=== PATIENT | male | born 1995 | race Caucasian/White ===

== ENCOUNTER 2017-11-20 17:52 | Emergency (ER) | payer BC ==
[~2017-11-20] VITALS: Ht 175.3 cm; Wt 125.6 kg
[~2017-11-20 17:52] MED LIST: CLIN300C2 PO
[2017-11-20 18:04] VITALS: TEMP 37.5; Ht 175.3 cm; Wt 125.6 kg
[2017-11-20] MEDS ORDERED: METHYLPREDNISOLONE 125 MG VIAL IV STA (18:27)
[2017-11-20] MEDS ORDERED: SODIUM CHLORIDE 0.9% 1000ML 2,000 ML IV STA (18:27)
[2017-11-20] MEDS ORDERED: CEPH500C PO (19:09)
[2017-11-20 19:21] LABS: BASO % 0.2 %; BASO ABS # 0.01 K/uL (0-0.2); EOS % 1.8 %; EOS ABS # 0.09 K/uL (0-0.5); HEMATOCRIT 41.7 % (42-52); HEMOGLOBIN 14.3 g/dL (14.0-18.0); LYMPH % 15.6 %; LYMPH ABS # 0.79 K/uL (1.2-3.4); MEAN CELL VOLUME 88.3 fL (80-100); MEAN CORPUSCULAR HEMOGLOBIN 30.3 pg (25-34); MEAN CORPUSCULAR HGB CONC 34.3 g/dl (32-36); MEAN PLATELET VOLUME 11.4 fL (7.4-10.4); MONO % 5.5 %; MONO ABS # 0.28 K/uL (0.11-0.59); NEUT % 76.9 %; NEUT ABS # 3.89 K/uL (1.4-6.5); PLATELET COUNT 173 K/uL (130-400); RED CELL DISTRIBUTION WIDTH CV 12.4 % (11.5-14.5); RED CELL DISTRIBUTION WIDTH SD 40.1 fL (36.4-46.3); WHITE BLOOD COUNT 5.06 K/uL (4.8-10.8)
[2017-11-20 19:38] LABS: CALCIUM 8.9 mg/dl (8.5-10.1); CREATININE 1.3 mg/dl (0.60-1.40); POTASSIUM 3.7 mmol/L (3.5-5.1)
[2017-11-20] MEDS ORDERED: PRED50TA PO (20:09)
[2017-11-20 20:16] VITALS: BP 148/65; PULSE 96; O2SAT 97
--- NOTE | 2017-11-21 00:09 | EMERGENCY ROOM VISIT NOTE ---
History Report prepared by Lizzeth: Lalit Gould Under the Supervision of: Dr. Abraham Boyle D.O. First contact with patient: 18:15 Chief Complaint: ALLERGIC REACTION Stated Complaint: ALLERGIC REACTION History of Present Illness The patient is a 22 year old male who presents to the Emergency Room with complaints of a constant rash that began today. The patient states that he came to the ED last week to have an abscess drained on his left posterior knee. He reports he was started on Clindamycin because they originally thought it was due to MRSA. He reports they switched his antibiotic to Bactrim four days ago. The patient states that yesterday, he noticed some bumps on his hands bilaterally. He states when he woke up at 0500 today he noticed his hands were burning. The patient states he then checked his left leg and noticed there was rash there as well. The patient states he feels that his eyelids are starting to develop a rash because they are swelling. He also notes the rash is on his shoulders. The patient denies fever, cough, rhinorrhea, chest pain, shortness of breath, abdominal pain, nausea, vomiting, recent sick contact, rash in mouth , pruritic eyes, poison curtis contact. Source of History: patient Onset: today Position: leg Quality: burning Timing: constant Associated Symptoms: No fevers, No cough, No chest pain, No nausea, No vomiting, No abdominal pain Review of Systems See HPI for pertinent positives & negatives. A total of 10 systems reviewed and were otherwise negative. Past Medical & Surgical Medical Problems: (1) Asthma, Unspecified (2) Bacterial Infection Due To Staphylococcus Aureus Surgical Problems: (1) No history of previous surgery Family History FH: cancer FH: diabetes mellitus FH: heart disease Social History Smoking Status: Never Smoker Alcohol Use: none Marital Status: single Housing Status: lives with family Occupation Status: employed Current/Historical Medications Scheduled Prednisone (Prednisone), 50 MG PO DAILY Allergies Coded Allergies: Sulfamethoxazole w/Trimethoprim (Verified Allergy, Severe, Rash, 11/20/17) Doxycycline (Verified Allergy, Unknown, Rash and hives., 11/20/17) Reported by PT and mother. Uncoded Allergies: POISONIVYEXTRAC (Allergy, Mild, 06/02/09) Physical Exam Vital Signs Date Time Temp Pulse Resp B/P (MAP) Pulse Ox O2 Delivery O2 Flow Rate FiO2 11/20/17 20:16 96 16 148/65 97 11/20/17 18:13 109 11/20/17 18:04 37.5 120 20 158/81 96 Room Air Physical Exam GENERAL: Sitting up in bed, alert, well appearing, well nourished, no distress, non-toxic EYE EXAM: normal conjunctiva. OROPHARYNX: no exudate, no erythema, lips, buccal mucosa, and tongue normal and mucous membranes are moist NECK: supple, no nuchal rigidity, no adenopathy, non-tender LUNGS: Clear to auscultation. Normal chest wall mechanics HEART: Tachycardic, no murmurs. ABDOMEN: abdomen soft, non-tender, normo-active bowel sounds, no masses, no rebound or guarding. BACK: Back is symmetrical on inspection and there is no deformity, no midline tenderness, no CVA tenderness. SKIN: Diffuse erythematous macular papular rash with blanches on the legs, left worse than right, arms, chest, back, and face. No petechiae. No involvement of the soles. 1.5 x 1.5 cm of draining abscess to medial posterior left knee with surrounding erythema. Improving per patient. No mucosal involvement. UPPER EXTREMITIES: upper extremities are grossly normal. LOWER EXTREMITIES: No pitting edema. NEURO EXAM: Normal sensorium, cranial nerves II-XII grossly intact, normal speech, no gross weakness of arms, no gross weakness of legs. Medical Decision & Procedures Laboratory Results 11/20/17 18:39 Red Blood Count 4.72, Mean Corpuscular Volume 88.3, Mean Corpuscular Hemoglobin 30.3, Mean Corpuscular Hemoglobin Concent 34.3, Mean Platelet Volume 11.4, Neutrophils (%) (Auto) 76.9, Lymphocytes (%) (Auto) 15.6, Monocytes (%) (Auto) 5.5, Eosinophils (%) (Auto) 1.8, Basophils (%) (Auto) 0.2, Neutrophils # (Auto) 3.89, Lymphocytes # (Auto) 0.79, Monocytes # (Auto) 0.28, Eosinophils # (Auto) 0.09, Basophils # (Auto) 0.01 11/20/17 18:39 Test 11/20/17 18:39 White Blood Count 5.06 K/uL (4.8-10.8) Red Blood Count 4.72 M/uL (4.7-6.1) Hemoglobin 14.3 g/dL (14.0-18.0) Hematocrit 41.7 % (42-52) Mean Corpuscular Volume 88.3 fL (80-100) Mean Corpuscular Hemoglobin 30.3 pg (25-34) Mean Corpuscular Hemoglobin Concent 34.3 g/dl (32-36) Platelet Count 173 K/uL (130-400) Mean Platelet Volume 11.4 fL (7.4-10.4) Neutrophils (%) (Auto) 76.9 % Lymphocytes (%) (Auto) 15.6 % Monocytes (%) (Auto) 5.5 % Eosinophils (%) (Auto) 1.8 % Basophils (%) (Auto) 0.2 % Neutrophils # (Auto) 3.89 K/uL (1.4-6.5) Lymphocytes # (Auto) 0.79 K/uL (1.2-3.4) Monocytes # (Auto) 0.28 K/uL (0.11-0.59) Eosinophils # (Auto) 0.09 K/uL (0-0.5) Basophils # (Auto) 0.01 K/uL (0-0.2) RDW Standard Deviation 40.1 fL (36.4-46.3) RDW Coefficient of Variation 12.4 % (11.5-14.5) Immature Granulocyte % (Auto) 0.0 % Immature Granulocyte # (Auto) 0.00 K/uL (0.00-0.02) Anion Gap 7.0 mmol/L (3-11) Est Creatinine Clear Calc Drug Dose 116.8 ml/min Estimated GFR () 89.8 Estimated GFR (Non- 77.5 BUN/Creatinine Ratio 8.6 (10-20) Calcium Level 8.9 mg/dl (8.5-10.1) Laboratory results per my review. Medications Administered Medications (Trade) Dose Ordered Sig/Domenico Route Start Time Stop Time Status Last Admin Dose Admin Sodium Chloride 2,000 ml @ 999 mls/hr Q2H1M STAT IV 11/20/17 18:27 11/20/17 20:27 DC 11/20/17 19:00 999 MLS/HR Methylprednisolone Sodium Succinate (Solu-Medrol IV) 125 mg NOW STAT IV 11/20/17 18:27 7/26/18 18:28 DC 11/20/17 18:59 125 MG ED Course ED COURSE: Vital signs were reviewed and showed tachycardia and hypertension. The patients medical record was reviewed The above diagnostic studies were performed and reviewed. ED treatments and interventions as stated above. 1819: The patient was evaluated in room A11A. A complete history and physical examination was performed. 1826: Ordered Solu-Medrol 125 mg IV, Sodium Chloride 2000 ml @ 999 mls/hr IV. 2003: Upon reevaluation, the patient is resting comfortably. I discussed my findings with the patient and he understands and agrees with the treatment plan. Based on the patients age, coexisting illnesses, exam and lab findings the decision to treat as an outpatient was made. The patient remained stable while under my care. The patient appeared well at the time of discharge. Medical Decision Differential diagnosis includes etiologies such as cellulitis, abscess, MRSA infection, DVT, necrotizing fasciitis, dermatitis, drug eruption, contact dermatitis, viral exanthem, urticaria, allergic reaction, Suazo-Rich syndrome, toxic epidermal necrolysis, erythema multiforme, cellulitis, scabies, HSV, varicella, zoster, eczema, staph scalded skin syndrome, fungal infection, as well as others were entertained. Patient is a 22-year-old male who presents the ER for diffuse rash which started yesterday and gradually got worse. He was started on initially clindamycin switched to Bactrim several days ago. He notes his mom is allergic to Bactrim as well. He did have diffuse maculopapular blanching rash without petechiae or oral/mucosal involvement. Labs were obtained and CBC along with BMP was unremarkable. Patient was given steroids. Symptoms improved slightly. He was given fluids as well. He will stop Bactrim and start Keflex as prescribed by pharmacy in the outpatient. I did give him a short prescription for steroids. He was discharged follow-up with PCP as an outpatient. He is given strict instructions to return for any softening of the skin, mucosal involvement, worsening or any other concerning signs or symptoms. Discussed with Pt concerning signs and symptoms to watch out for. Pt was instructed to follow up with their PCP and discussed with the patient their option to return to the ED at anytime for persistent or worsening symptoms. The appropriate anticipatory guidance and out-patient management, including indications for return to the emergency department, were explained at length to the patient and understood. Medication Reconcilliation Current Medication List: was personally reviewed by me Blood Pressure Screening Patient's blood pressure: Elevated blood pressure Blood pressure disposition: Elevated BP felt to be situational Impression Primary Impression: Adverse reaction to drug Additional Impression: Hyponatremia Scribe Attestation The scribe's documentation has been prepared under my direction and personally reviewed by me in its entirety. I confirm that the note above accurately reflects all work, treatment, procedures, and medical decision making performed by me. Departure Information Dispostion Home / Self-Care Prescriptions Prednisone (PREDNISONE) 50 Mg Tab 50 MG PO DAILY for 4 Days, TAB Prov: Abraham Boyle, DO 11/20/17 Referrals No Doctor, Assigned (PCP) Forms HOME CARE DOCUMENTATION FORM, IMPORTANT VISIT INFORMATION Patient Instructions ED Drug React Allergic, My [facility] Additional Instructions Please follow up with your primary care doctor with in the next 24 hours. Any worsening of your symptoms, please return to the ED immediately. This includes any fevers greater than 100.4, worsening pain, chest pain, shortness breath, persistent nausea, vomiting, unable to eat or drink, or any other concerning signs or symptoms from your standpoint. Any involvement of your mouth, eyes or any oral mucosa you should return to the ER immediatly. Also if you notice any of your skin pealing off you should return to the ER immediatly. Please stop taking bactrim and start taking keflex as prescribed. Problem Qualifiers Primary Impression: Adverse reaction to drug Encounter type: initial encounter Qualified Codes: T50.905A - Adverse effect of unspecified drugs, medicaments and biological substances, initial encounter
== END 2017-11-20 20:17 | disposition home or self-care (01) ==
LOC: C.EDB 17:53 → C.EDA 20:17
DX: T78.40XA Allergy, unspecified, initial encounter (principal); T37.0X5A Adverse effect of sulfonamides, initial encounter; X58.XXXA Exposure to other specified factors, initial encounter; E87.1 Hypo-osmolality and hyponatremia; J45.909 Unspecified asthma, uncomplicated; Z80.9 Family history of malignant neoplasm, unspecified; Z83.3 Family history of diabetes mellitus; Z88.2 Allergy status to sulfonamides; Z88.1 Allergy status to other antibiotic agents